=== PATIENT | female | born 1960 | race Caucasian/White ===

== ENCOUNTER 2017-10-02 07:25 | Emergency (ER) | payer OTHER ==
[2017-10-02] MEDS: ONDANSETRON 4 MG INJ IV ×2 (08:00→09:14)
[2017-10-02] MEDS: SOD CHLORIDE 0.9% 1,000 ML IV (08:01)
[2017-10-02] MEDS: HYDROmorphONE 1 MG/ML SYG IV (08:01)
[2017-10-02] MEDS: TETRACAINE 0.5% 4 ML OPH LEFT EYE (09:24)
[2017-10-02] MEDS: FLUORESCEIN STRIP BOTH EYES (09:24)
[2017-10-02] MEDS: METOCLOPRAMIDE 10 MG INJ IM (10:07)
== END 2017-10-02 10:14 | disposition home or self-care (01) ==
LOC: FTE 07:25
DX: S05.02XA Injury of conjunctiva and corneal abrasion without foreign body, left eye, initial encounter (principal); I10 Essential (primary) hypertension; E11.9 Type 2 diabetes mellitus without complications; R51 Headache; X58.XXXA Exposure to other specified factors, initial encounter; Y92.9 Unspecified place or not applicable
CPT/HCPCS: 70450; 96372; 96374; 96375; 96376; 99285-25

== ENCOUNTER 2018-01-01 17:10 | Emergency (ER) | payer OTHER ==
[2018-01-01] MEDS: ONDANSETRON (ODT) 4 MG TAB ODT (17:41)
[2018-01-01] MEDS: SOD CHLORIDE 0.9% 500 ML IV (17:41)
[2018-01-01] MEDS: LEVOFLOXACIN 750MG/D5W (PMX) 150 ML IVPB (17:41)
[2018-01-01] MEDS: morphine 2 MG INJ IV (17:42)
[2018-01-01] MEDS: METOCLOPRAMIDE 10 MG TAB PO (19:25)
== END 2018-01-01 19:43 | disposition home or self-care (01) ==
LOC: FTE 17:10
DX: H44.19 Other endophthalmitis (principal); E11.9 Type 2 diabetes mellitus without complications; Z79.4 Long term (current) use of insulin
CPT/HCPCS: 96374; 96375; 99284-25